=== PATIENT | male | born 1990 ===

== ENCOUNTER 2022-02-16 09:50 | Emergency (ER) | payer MEDICAID ==
[2022-02-16] MEDS: Acetaminophen 500 MG Tab PO ONE (10:43)
[2022-02-16] MEDS: Ibuprofen 800 MG Tab PO ONE (10:43)
[2022-02-16] MEDS: Cyclobenzaprine 10 MG Tab PO ONE (10:43)
[2022-02-16 10:59] LABS: CORONAVIRUS COVID-19 NAA POSITIVE (NEGATIVE)
== END 2022-02-16 11:20 | disposition home or self-care (01) ==
LOC: FB.ED 09:50
DX: U07.1 COVID-19 (principal)
CPT/HCPCS: 0240U; 36415; 80048; 85025; 99282; 99283; A9270-GY

== ENCOUNTER 2022-06-23 07:26 | Emergency (ER) | payer MEDICAID ==
[2022-06-23] MEDS: Ketorolac 30 MG/ML SDV IM ONE (08:22)
== END 2022-06-23 09:45 | disposition home or self-care (01) ==
LOC: FB.ED 07:26
DX: S49.91XA Unspecified injury of right shoulder and upper arm, initial encounter (principal); Z79.899 Other long term (current) drug therapy; Z86.16 Personal history of COVID-19; Z90.49 Acquired absence of other specified parts of digestive tract; X50.3XXA Overexertion from repetitive movements, initial encounter; Y92.69 Other specified industrial and construction area as the place of occurrence of the external cause
CPT/HCPCS: 73030-RT; 96372; 99283; J1885

== ENCOUNTER 2023-01-15 07:39 | Emergency (ER) | payer MEDICAID | END 2023-01-15 08:57 | disposition home or self-care (01) | LOC: FB.ED 07:39 | DX: J02.0 Streptococcal pharyngitis (principal); H66.001 Acute suppurative otitis media without spontaneous rupture of ear drum, right ear; Z86.16 Personal history of COVID-19; Z20.822 Contact with and (suspected) exposure to COVID-19 | CPT/HCPCS: 87651-QW; 99282; 99283; U0002 ==